=== PATIENT | male | born 1995 | race American Indian/Alaskan Native ===

== ENCOUNTER 2021-02-11 09:08 | Emergency (ER) | payer SELFPAY ==
[2021-02-11] MEDS ORDERED: LIDOCAINE-MPF (1%) 10 MG/1 ML VIAL 5 ML INFILTRATI ONE (09:47)
[2021-02-11 09:49] VITALS: BP 93/52
--- NOTE | 2021-02-11 10:06 | Emergency Department Report ---
ED General Adult HPI - General Chief complaint: Urogenital-Male Stated complaint: STD Time Seen by Provider: 02/11/21 09:35 Source: patient Mode of arrival: Ambulatory Limitations: No Limitations - History of Present Illness Initial comments: 25-year-old -Guyanese male patient presents with complaints of exposure to gonorrhea and chlamydia. He reports his girlfriend informed him that she tested positive yesterday. He denies any symptoms including dysuria, hematuria, penile discharge, urinary frequency, penile/testicular pain/swelling, or skin lesions. He also denies any painful/swollen joints, throat pain, or fever/chills/sweats. No past medical history per patient. He denies any known drug allergies. - Related Data Previous Rx's Medication Instructions Recorded Last Taken Type cephALEXin [Keflex] 500 mg PO Q6HR #40 capsule 09/23/15 Unknown Rx traMADoL [Ultram 50 MG tab] 50 mg PO Q4HR PRN #15 tablet 09/23/15 Unknown Rx Doxycycline Monohydrate 100 mg PO BID 7 Days #14 capsule 02/11/21 Unknown Rx Allergies Allergy/AdvReac Type Severity Reaction Status Date / Time No Known Allergies Allergy Unverified 03/19/15 12:32 ED Review of Systems ROS: Stated complaint: STD Other details as noted in HPI Constitutional: denies: chills, fever, malaise Gastrointestinal: denies: abdominal pain, nausea, vomiting Genitourinary: denies: urgency, dysuria, frequency, hematuria, discharge, testicular pain, testicular mass Hematological/Lymphatic: denies: swollen glands ED Past Medical Hx - Past Medical History Previous Medical History?: No - Surgical History Additional Surgical History: Bilateral knee surgery- - Social History Smoking Status: Never Smoker Substance Use Type: None - Medications Home Medications: Home Medications Medication Instructions Recorded Confirmed Last Taken Type cephALEXin [Keflex] 500 mg PO Q6HR #40 capsule 09/23/15 Unknown Rx traMADoL [Ultram 50 MG tab] 50 mg PO Q4HR PRN #15 tablet 09/23/15 Unknown Rx Doxycycline Monohydrate 100 mg PO BID 7 Days #14 capsule 02/11/21 Unknown Rx ED Physical Exam - General Limitations: No Limitations General appearance: alert, in no apparent distress - Head Head exam: Present: atraumatic, normocephalic - Eye Eye exam: Present: normal appearance - Respiratory Respiratory exam: Absent: respiratory distress - Cardiovascular Cardiovascular Exam: Present: regular rate - Neurological Exam Neurological exam: Present: alert, oriented X3 - Psychiatric Psychiatric exam: Present: normal affect, normal mood - Skin Skin exam: Present: warm, dry, intact, normal color. Absent: rash ED Course Vital Signs 02/11/21 09:27 Temperature 97.3 F L Pulse Rate 67 Respiratory 17 Rate Blood Pressure 93/52 O2 Sat by Pulse 100 Oximetry ED Medical Decision Making - Medical Decision Making 25-year-old -Guyanese male patient presents with complaints of exposure to gonorrhea and chlamydia. He reports his girlfriend informed him that she tested positive yesterday. He denies any symptoms including dysuria, hematuria, penile discharge, urinary frequency, penile/testicular pain/swelling, or skin lesions. He also denies any painful/swollen joints, throat pain, or fever/chills/sweats. No past medical history per patient. He denies any known drug allergies. Patient given Rocephin for empiric treatment of gonorrhea and will discharge home with doxycycline for chlamydia treatment. Discussed importance of follow-up with health department for further STI testing. Also discussed in detail signs and symptoms that should prompt immediate return to the ED with patient who verbalized understanding. He is well-appearing, his vitals are within normal limits, he is stable for discharge home. Critical care attestation.: If time is entered above; I have spent that time in minutes in the direct care of this critically ill patient, excluding procedure time. ED Disposition Clinical Impression: STD exposure Disposition: 01 HOME / SELF CARE / HOMELESS Is pt being admited?: No Condition: Stable Instructions: Preventing Sexually Transmitted Infections, Adult, Gonorrhea, Chlamydia, Male Prescriptions: Doxycycline Monohydrate 100 mg PO BID 7 Days #14 capsule [facility] Forms: Work/School Release Form(ED)
== END 2021-02-11 10:33 | disposition home or self-care (01) ==
LOC: ED 09:08
DX: Z20.2 Contact with and (suspected) exposure to infections with a predominantly sexual mode of transmission (principal); Z79.899 Other long term (current) drug therapy
CPT/HCPCS: 96372; 99282; J0696

== ENCOUNTER 2021-02-26 10:19 | Emergency (ER) | payer SELFPAY ==
[2021-02-26] MEDS ORDERED: ALBUTEROL 2.5 MG/3 ML NEBU IH ONE (10:34)
[2021-02-26] MEDS ORDERED: IPRATROPIUM 0.02% NEBU 2.5 ML IH ONE (10:34)
[2021-02-26] MEDS ORDERED: dexAMETHasone 4 MG/ML VIAL IM STA (10:34)
--- NOTE | 2021-02-26 10:34 | Emergency Department Report ---
ED General Adult HPI - General Chief complaint: Adult Asthma Stated complaint: ASTHMA Time Seen by Provider: 02/26/21 10:25 Source: patient Mode of arrival: Ambulatory Limitations: No Limitations - History of Present Illness Initial comments: 25-year-old -[place]ib[place] male patient presents with complaints of wheezing and chest tightness x3 days. He reports a history of asthma as a child that mildly flares up around this time of year, however states he has not had to use an inhaler since he was a child. He denies any productive cough/hemoptysis, fever/chills/sweats, loss of taste/smell, or recent known sick contacts. He denies being vaccinated for COVID-19. No past medical history or known drug allergies per patient. - Related Data Previous Rx's Medication Instructions Recorded Last Taken Type cephALEXin [Keflex] 500 mg PO Q6HR #40 capsule 09/23/15 Unknown Rx traMADoL [Ultram 50 MG tab] 50 mg PO Q4HR PRN #15 tablet 09/23/15 Unknown Rx Doxycycline Monohydrate 100 mg PO BID 7 Days #14 capsule 02/11/21 Unknown Rx Albuterol Mdi (or & Nicu Only) 2 puff IH QID PRN #8.5 gram 02/26/21 Unknown Rx [ProAir HFA Inhaler] Prednisone [predniSONE 10 mg 10 mg PO .TAPER #1 tab.ds.pk 02/26/21 Unknown Rx (6-Day Pack, 21 Tabs)] Allergies Allergy/AdvReac Type Severity Reaction Status Date / Time No Known Allergies Allergy Unverified 03/19/15 12:32 ED Review of Systems ROS: Stated complaint: ASTHMA Other details as noted in HPI Constitutional: malaise. denies: chills, diaphoresis, fever, weakness Respiratory: cough, shortness of breath, wheezing Cardiovascular: denies: chest pain (Tightness) Skin: denies: change in color ED Past Medical Hx - Past Medical History Previous Medical History?: Yes Hx Asthma: Yes - Surgical History Past Surgical History?: Yes Additional Surgical History: Bilateral knee surgery- - Social History Smoking Status: Never Smoker Substance Use Type: None - Medications Home Medications: Home Medications Medication Instructions Recorded Confirmed Last Taken Type cephALEXin [Keflex] 500 mg PO Q6HR #40 capsule 09/23/15 Unknown Rx traMADoL [Ultram 50 MG tab] 50 mg PO Q4HR PRN #15 tablet 09/23/15 Unknown Rx Doxycycline Monohydrate 100 mg PO BID 7 Days #14 capsule 02/11/21 Unknown Rx Albuterol Mdi (or & Nicu Only) 2 puff IH QID PRN #8.5 gram 02/26/21 Unknown Rx [ProAir HFA Inhaler] Prednisone [predniSONE 10 mg 10 mg PO .TAPER #1 tab.ds.pk 02/26/21 Unknown Rx (6-Day Pack, 21 Tabs)] ED Physical Exam - General Limitations: No Limitations General appearance: alert, in no apparent distress - Head Head exam: Present: atraumatic, normocephalic - Eye Eye exam: Present: normal appearance - Neck Neck exam: Present: normal inspection - Respiratory Respiratory exam: Present: wheezes (Generalized, worse on left), rhonchi. Abse nt: respiratory distress, stridor, accessory muscle use - Cardiovascular Cardiovascular Exam: Present: regular rate, normal rhythm. Absent: systolic murmur, diastolic murmur, rubs, gallop - Neurological Exam Neurological exam: Present: alert, oriented X3 - Psychiatric Psychiatric exam: Present: normal affect, normal mood - Skin Skin exam: Present: warm, dry, intact, normal color. Absent: rash ED Course Vital Signs 02/26/21 02/26/21 10:24 10:44 Temperature 98.5 F Pulse Rate 73 Pulse Rate [ 88 Anterior Bilateral Throughout] Respiratory 20 Rate Respiratory 21 Rate [Anterior Bilateral Throughout] Blood Pressure 107/64 O2 Sat by Pulse 100 Oximetry ED Medical Decision Making - Radiology Data Radiology results: report reviewed CHEST 2 VIEWS INDICATION / CLINICAL INFORMATION: abnormal breath sounds. COMPARISON: None available. FINDINGS: SUPPORT DEVICES: None. HEART / MEDIASTINUM: No significant abnormality. LUNGS / PLEURA: No significant pulmonary or pleural abnormality. No pneumothorax. ADDITIONAL FINDINGS: No significant additional findings. IMPRESSION: 1. No acute findings. - Medical Decision Making 25-year-old -[place]ib[place] male patient presents with complaints of wheezing and chest tightness x3 days. He reports a history of asthma as a child that mildly flares up around this time of year, however states he has not had to use an inhaler since he was a child. He denies any productive cough/hemoptysis, fever/chills/sweats, loss of taste/smell, or recent known sick contacts. He denies being vaccinated for COVID-19. No past medical history or known drug allergies per patient. Chest x-ray is normal. Patient wheezing has significantly improved with breathing treatment. He states he is feeling well. His vitals are normal and he is stable for discharge home. Strict return precautions discussed in detail with patient verbalizes understanding. He is to follow-up with PCP in 3 to 5 days referral provided Critical care attestation.: If time is entered above; I have spent that time in minutes in the direct care of this critically ill patient, excluding procedure time. ED Disposition Clinical Impression: Acute asthma flare Disposition: HOME / SELF CARE / HOMELESS Is pt being admited?: No Condition: Stable Instructions: Asthma, Adult Prescriptions: Prednisone [predniSONE 10 mg (6-Day Pack, 21 Tabs)] 10 mg PO .TAPER #1 tab.ds.pk Albuterol Mdi (or & Nicu Only) [ProAir HFA Inhaler] 2 puff IH QID PRN #8.5 gram PRN Reason: Shortness Of Breath Referrals: PRIMARY CARE [Primary Care Provider] - 3-5 Days [facility] [Provider Group] - 3-5 Days Forms: Work/School Release Form(ED)
--- NOTE | 2021-02-26 12:13 | XRay Report ---
CHEST 2 VIEWS INDICATION / CLINICAL INFORMATION: abnormal breath sounds. COMPARISON: None available. FINDINGS: SUPPORT DEVICES: None. HEART / MEDIASTINUM: No significant abnormality. LUNGS / PLEURA: No significant pulmonary or pleural abnormality. No pneumothorax. ADDITIONAL FINDINGS: No significant additional findings. IMPRESSION: 1. No acute findings. Signer Name: Eric Good MD Signed: 02/26/2021 12:08 PM Workstation Name: [id number]
[2021-02-26 12:55] VITALS: BP 132/67
== END 2021-02-26 13:25 | disposition home or self-care (01) ==
LOC: ED 10:19
DX: J45.998 Other asthma (principal); Z98.890 Other specified postprocedural states; Z79.899 Other long term (current) drug therapy
CPT/HCPCS: 71046; 94640; 96372; 99283; J1100; 94644

== ENCOUNTER 2021-12-04 21:58 | Emergency (ER) | payer SELFPAY ==
[2021-12-05] MEDS ORDERED: IBUPROFEN 600 MG TAB PO ONE (01:00)
[2021-12-05] MEDS ORDERED: HYDROcodone/ACETAMINOPHEN 5-325 MG TAB PO ONE (01:00)
[2021-12-05] MEDS ORDERED: ONDANSETRON 4 MG ODT TAB PO ONE (01:00)
--- NOTE | 2021-12-05 02:08 | XRay Report ---
COCCYX 2 VIEW(S) INDICATION / CLINICAL INFORMATION: Pain - fall COMPARISON: None available. FINDINGS: No fracture, dislocation, or significant soft tissue abnormality is demonstrated. No radiopaque forei gn bodies are identified. IMPRESSION: 1. No acute pathology. Signer Name: Fahad Higgins II, MD Signed: 12/05/2021 2:04 AM Workstation Name: [id number]
--- NOTE | 2021-12-05 03:02 | Emergency Department Report ---
ED Back Pain/Injury HPI - General Chief Complaint: Back Pain/Injury Stated Complaint: POSS BROKEN TAIL BONE Source: patient Limitations: No Limitations - History of Present Illness Initial Comments: Patient is a 26-year-old male with a history of asthma presents to the ED with complaint of acute onset persistent low back pain and tailbone pain after he fell onto a sharp furniture at a haunted house 3 days ago. Patient states that this occurred after he got scared when walking through a haunted house. Patient states that the pain has been constant and persistent and that it is worse whenever he lays down or sits down or when with any movement. Patient denies urinary or bowel incontinence, saddle paresthesia, numbness and tingling or weakness of lower extremities bilaterally, chest pain or shortness of breath, fever, chills, hematuria, testicular pain, head or neck injuries. MD Complaint: back pain (lower back and coccygeal pain), back injury (lower), fall -: Sudden, days(s) (3) Similar Symptoms Previously: No Place: street Radiation: none Severity: severe Severity scale (0 -10): 8 Quality: sharp, aching Consistency: constant Improves With: none Worsens With: movement, sitting upright, walking Context: fall Associated Symptoms: denies other symptoms. denies: confusion, weakness, chest pain, numbness, difficulty walking, cough, difficulty urinating, diaphoresis, incontinence, fever/chills, headaches, abdominal pain, malaise, nausea/vomiting, rash, seizure - Related Data Previous Rx's Medication Instructions Recorded Last Taken Type cephALEXin [Keflex] 500 mg PO Q6HR #40 capsule 09/23/15 Unknown Rx Doxycycline Monohydrate 100 mg PO BID 7 Days #14 capsule 02/11/21 Unknown Rx Albuterol Mdi (or & Nicu Only) 2 puff IH QID PRN #8.5 gram 02/26/21 Unknown Rx [ProAir HFA Inhaler] Prednisone [predniSONE 10 mg 10 mg PO .TAPER #1 tab.ds.pk 02/26/21 Unknown Rx (6-Day Pack, 21 Tabs)] Baclofen 20 mg PO Q12H PRN #24 tab 12/05/21 Unknown Rx Ibuprofen [Motrin] 800 mg PO Q8HR PRN #30 tablet 12/05/21 Unknown Rx traMADoL [Ultram 50 MG tab] 50 mg PO Q4HR PRN #12 tablet 12/05/21 Unknown Rx Allergies Allergy/AdvReac Type Severity Reaction Status Date / Time No Known Allergies Allergy Unverified 03/19/15 12:32 ED Review of Systems ROS: Stated complaint: POSS BROKEN TAIL BONE Other details as noted in HPI Constitutional: denies: chills, fever Eyes: denies: eye pain, eye discharge, vision change ENT: denies: ear pain, throat pain Respiratory: denies: cough, shortness of breath, wheezing Cardiovascular: denies: chest pain, palpitations Endocrine: no symptoms reported Gastrointestinal: denies: abdominal pain, nausea, vomiting, diarrhea Genitourinary: denies: urgency, dysuria Musculoskeletal: back pain (lower back), arthralgia (coccygeal and sacral pain). denies: joint swelling Skin: denies: rash, lesions Neurological: denies: headache, weakness, paresthesias Psychiatric: denies: anxiety, depression Hematological/Lymphatic: denies: easy bleeding, easy bruising ED Past Medical Hx - Past Medical History Hx Asthma: Yes - Surgical History Additional Surgical History: Bilateral knee surgery- - Social History Smoking Status: Never Smoker Substance Use Type: None - Medications Home Medications: Home Medications Medication Instructions Recorded Confirmed Last Taken Type cephALEXin [Keflex] 500 mg PO Q6HR #40 capsule 09/23/15 Unknown Rx Doxycycline Monohydrate 100 mg PO BID 7 Days #14 capsule 02/11/21 Unknown Rx Albuterol Mdi (or & Nicu Only) 2 puff IH QID PRN #8.5 gram 02/26/21 Unknown Rx [ProAir HFA Inhaler] Prednisone [predniSONE 10 mg 10 mg PO .TAPER #1 tab.ds.pk 02/26/21 Unknown Rx (6-Day Pack, 21 Tabs)] Baclofen 20 mg PO Q12H PRN #24 tab 12/05/21 Unknown Rx Ibuprofen [Motrin] 800 mg PO Q8HR PRN #30 tablet 12/05/21 Unknown Rx traMADoL [Ultram 50 MG tab] 50 mg PO Q4HR PRN #12 tablet 12/05/21 Unknown Rx ED Physical Exam - General Limitations: No Limitations General appearance: alert, in no apparent distress - Head Head exam: Present: atraumatic, normocephalic, normal inspection - Eye Eye exam: Present: normal appearance, PERRL, EOMI Pupils: Present: normal accommodation - ENT ENT exam: Present: normal exam, normal orophraynx, mucous membranes moist, TM's normal bilaterally, normal external ear exam - Neck Neck exam: Present: normal inspection, full ROM. Absent: tenderness, lymphadenopathy, thyromegaly - Respiratory Respiratory exam: Present: normal lung sounds bilaterally. Absent: respiratory distress, wheezes, rales, stridor, chest wall tenderness, accessory muscle use, decreased breath sounds, prolonged expiratory - Cardiovascular Cardiovascular Exam: Present: regular rate, normal rhythm, normal heart sounds. Absent: systolic murmur, diastolic murmur, rubs, gallop - GI/Abdominal GI/Abdominal exam: Present: soft, normal bowel sounds. Absent: tenderness, guarding, hyperactive bowel sounds, hypoactive bowel sounds, organomegaly, mass, pulsatile mass - Extremities Exam Extremities exam: Present: normal inspection, full ROM, normal capillary refill. Absent: tenderness, pedal edema, joint swelling, calf tenderness - Back Exam Back exam: Present: normal inspection, full ROM, tenderness (Palpable lumbosacral paraspinal musculoskeletal tenderness), muscle spasm, paraspinal tenderness, vertebral tenderness (Palpable coccygeal and sacral vertebral tenderness) - Neurological Exam Neurological exam: Present: alert, oriented X3, CN II-XII intact, normal gait, reflexes normal - Psychiatric Psychiatric exam: Present: normal affect, normal mood - Skin Skin exam: Present: warm, dry, intact, normal color. Absent: rash ED Course Vital Signs 12/04/21 22:30 Temperature 99.2 F Pulse Rate 99 H Respiratory 18 Rate Blood Pressure 105/67 [Right] O2 Sat by Pulse 100 Oximetry ED Medical Decision Making - Radiology Data Radiology results: report reviewed, image reviewed [facility] [address] [place] [address] XRay Report Signed Patient: CARLOS NOLAN MR#: [id number] : 1995 Acct:[id number] Age/Sex: 26 / M ADM Date: 12/04/21 Loc: ED Attending Dr: Ordering Physician: JANINA FERRARO Date of Service: 12/05/21 Procedure(s): XR spine sacrum/coccyx 2+V Accession Number(s): [id number] cc: JANINA FERRARO Fluoro Time In Minutes: COCCYX 2 VIEW(S) INDICATION / CLINICAL INFORMATION: Pain - fall COMPARISON: None available. FINDINGS: No fracture, dislocation, or significant soft tissue abnormality is demonstrated. No radiopaque foreign bodies are identified. IMPRESSION: 1. No acute pathology. Signer Name: Aretha Merrill II, MD Signed: 12/05/2021 2:04 AM Workstation Name: [id number] Transcribed By: ANDREEA Dictated By: ARETHA MERRILL II, MD Electronically Authenticated By: ARETHA MERRILL II, MD Signed Date/Time: 12/05/21203 DD/ 8 TD/TT: - Medical Decision Making This is a 26-year-old male with a history of asthma presents to the ED with complaint of acute onset persistent low back pain and tailbone pain after he fell onto a sharp furniture at a haunted house 3 days ago. Patient states that this occurred after he got scared when walking through a haunted house. Patient states that the pain has been constant and persistent and that it is worse whenever he lays down or sits down or when with any movement. In the ED, patient is alert and oriented x3 and is not in any distress. Patient is hemodynamically stable. Patient was treated for pain in the ED. The coccygeal and sacral x-ray showed no acute fractures or subluxations. Patient was therefore discharged home on pain medications and advised to follow-up with his primary care physician in 7 to 10 days for reevaluation or return to the ED immediately if symptoms get worse. - Differential Diagnosis cocccygeal contusion; sacral fracture; muscle spasm; muscle strain Critical care attestation.: If time is entered above; I have spent that time in minutes in the direct care of this critically ill patient, excluding procedure time. ED Disposition Clinical Impression: Acute coccygeal pain, Spasm of muscle of lower back Coccygeal contusion Qualifiers: Encounter type: initial encounter Qualified Code(s): S30.0XXA - Contusion of lower back and pelvis, initial encounter Disposition: HOME / SELF CARE / HOMELESS Is pt being admited?: No Does the pt Need Aspirin: No Condition: Stable Instructions: Muscle Cramps and Spasms, [id number], Contusion, [id number], Tailbone Injury, [id number], Back Injury Prevention, [id number] Additional Instructions: The coccygeal or tailbone x-ray showed no acute fractures or subluxations. Therefore your injuries are likely musculoskeletal following the fall. Take medication with food, drink plenty of fluids, follow-up with your primary care physician in 7 to 10 days for reevaluation. Return to the ED immediately if symptoms get worse. Prescriptions: Baclofen 20 mg PO Q12H PRN #24 tab PRN Reason: Muscle Spasm Ibuprofen [Motrin] 800 mg PO Q8HR PRN #30 tablet PRN Reason: Pain , Severe (7-10) traMADoL [Ultram 50 MG tab] 50 mg PO Q4HR PRN #12 tablet PRN Reason: Pain Referrals: MART KEYES MD [Primary Care Provider] - 3-5 Days Forms: Work/School Release Form(ED) Time of Disposition: 03:02 Print Language: TURKISH
[2021-12-05 03:37] VITALS: BP 114/74
== END 2021-12-05 03:37 | disposition home or self-care (01) ==
LOC: ED 21:58
DX: M53.3 Sacrococcygeal disorders, not elsewhere classified (principal); M62.830 Muscle spasm of back; S30.0XXA Contusion of lower back and pelvis, initial encounter; W19.XXXA Unspecified fall, initial encounter; Y93.89 Activity, other specified; Y92.89 Other specified places as the place of occurrence of the external cause; Y99.8 Other external cause status
CPT/HCPCS: 72220; 99283; J3490; Q0162